=== PATIENT | female | born 1965 | race Caucasian/White ===

== ENCOUNTER → 2017-02-05 | Outpatient (REF) | payer OTHER ==
[2017-02-05 16:00] LABS: ALBUMIN 3.7 GM/DL (3.2-5.2); ALBUMIN/GLOBULIN RATIO 1.03 (1.00-1.93); ALKALINE PHOSPHATASE 77 U/L (45-117); ALT/SGPT 20 U/L (12-78); ANION GAP 7 MEQ/L (8-16); AST/SGOT 4 U/L (15-37); BILIRUBIN,TOTAL 0.4 MG/DL (0.2-1.0); BLOOD UREA NITROGEN 21 MG/DL (7-18); CALCIUM LEVEL 8.6 MG/DL (8.5-10.1); CARBON DIOXIDE LEVEL 26 MEQ/L (21-32); CHLORIDE LEVEL 107 MEQ/L (98-107); CHOLESTEROL LEVEL 243 MG/DL (<200); CREATININE FOR GFR 0.84 MG/DL (0.55-1.02); GLOMERULAR FILTRATION RATE > 60.0 (>51); GLUCOSE, FASTING 185 MG/DL (70-105); POTASSIUM SERUM 4.2 MEQ/L (3.5-5.1); SODIUM LEVEL 140 MEQ/L (136-145); TOTAL PROTEIN 7.3 GM/DL (6.4-8.2); TRIGLYCERIDES LEVEL 177 MG/DL (<150)
== END ==
LOC: M SFHCLACO 09:52
PROVIDERS: ATTEND Physician Assistant
DX: I10 Essential (primary) hypertension (principal); E11.9 Type 2 diabetes mellitus without complications; E78.2 Mixed hyperlipidemia

== ENCOUNTER → 2017-07-05 | Outpatient (CLI) | payer OTHER ==
[~2017-07-05] MED LIST: ASPI325T PO; ASPI81TA85 PO; ATOR1TAB21 PO; FISH100049 PO; GLIM2TAB PO; JARD1TAB3 PO; LISI40TAB PO; OMEG100011 PO; SIMV10TA2 PO; SIMV40TA2 PO; SUPECAP PO
--- NOTE | 2017-07-05 12:58 | REPMRS ---
Patient History The patient states she had a clinical breast exam in June 2017. Patient had first child at age 33. Family history of colorectal cancer in mother at age 50 or over and breast cancer in maternal grandmother at age 50 or over. Benign excisional biopsy of the right breast. Took hormonal contraceptives for 6 months. Digital Mammo Screening Bilat: July 05, 2017 - Exam #: [id number] Bilateral CC and MLO view(s) were taken. Technologist: Dinorah Cardoso Technologist Prior study comparison: June 29, 2016, bilateral digital mammo screening bilat performed at [facility]. June 24, 2015, bilateral digital mammo screening bilat performed at [facility]. FINDINGS: There are scattered fibroglandular densities. There has been no change in the appearance of the mammogram from the prior studies. There is a mild amount of residual fibroglandular tissue which is fairly symmetric. There is no interval development of dominant mass, architectural distortion, or clustered microcalcification suggestive of malignancy. ASSESSMENT: BI-RADS/ACR category 1 mammogram. Negative. Recommendation Routine screening mammogram in 1 year (for women over age 40). This mammogram was interpreted with the aid of an FDA-approved computer-aided dectection system. Electronically Signed By: Fadi Mathis MD 07/05/17 [id number]
== END ==
LOC: M RAD 10:48
PROVIDERS: ATTEND Obstetrics & Gynecology
DX: Z12.31 Encounter for screening mammogram for malignant neoplasm of breast (principal)

== ENCOUNTER 2017-07-14 19:21 | Observation (INO) | payer OTHER ==
[~2017-07-14] VITALS: Ht 172.7 cm; Wt 100.0 kg
[2017-07-14] MEDS ORDERED: ASPI81TA85 PO (19:38)
[2017-07-14] MEDS ORDERED: JARD1TAB3 PO (19:38)
[2017-07-14] MEDS ORDERED: SUPECAP PO (19:38)
[2017-07-14] MEDS ORDERED: SIMV40TA2 PO (19:38)
[2017-07-14] MEDS ORDERED: GLIM2TAB PO (19:38)
[2017-07-14] MEDS ORDERED: LISI40TAB PO (19:38)
--- NOTE | 2017-07-14 21:30 | REPUSA ---
CT of the head Clinical history: CVA. Technique: Multiple axial CT images were obtained through the head without administration of contrast . Findings: The ventricles and sulci are symmetric bilaterally. There is no evidence of acute hemorrhag e or infarct. There is no midline shift, mass effect, or extra-axial fluid collection. The osseous st ructures are unremarkable. The visualized paranasal sinuses and mastoid air cells are clear. Impression: Negative study.
[2017-07-14 22:02] LABS: BASO % 0.3 % (0.0-1.0); EOS # 0.1 10^3/uL (0.0-0.50); EOS % 0.9 % (0.0-3.0); IMMATURE GRANULOCYTE % 0.3 % (0-0); LYMPH # 2.9 10^3/uL (1.5-4.5); LYMPH % 33.6 % (24.0-44.0); MEAN CORPUSCULAR HEMOGLOBIN 28.6 pg (27.0-33.0); MEAN CORPUSCULAR HGB CONC 33.2 g/dl (32.0-36.5); MEAN CORPUSCULAR VOLUME 86.2 fl (80.0-96.0); MONO # 0.4 10^3/uL (0.0-0.8); MONO % 4.2 % (0.0-5.0); NEUTROPHILS # 5.3 10^3/uL (1.8-7.7); NEUTROPHILS % 60.7 % (36.0-66.0); PLATELET COUNT, AUTOMATED 300 10^3/uL (150-450); RED CELL DISTRIBUTION WIDTH 13.2 % (11.5-14.5); WHITE BLOOD COUNT 8.8 10^3/uL (4.0-10.0)
[2017-07-14] MEDS ORDERED: ASPIRIN 325 MG TAB PO ONE (22:15)
[2017-07-14 22:17] LABS: ADD MANUAL DIFFER NO; DIFF SLIDE NUMBER 180
[2017-07-14 22:20] LABS: INR 0.93
[2017-07-14 22:35] LABS: ALBUMIN 3.7 GM/DL (3.2-5.2); ALBUMIN/GLOBULIN RATIO 1.09 (1.00-1.93); ALKALINE PHOSPHATASE 83 U/L (45-117); ALT/SGPT 24 U/L (12-78); ANION GAP 7 MEQ/L (8-16); AST/SGOT 9 U/L (15-37); BILIRUBIN,DIRECT < 0.1 MG/DL (0.0-0.2); BILIRUBIN,TOTAL 0.4 MG/DL (0.2-1.0); BLOOD UREA NITROGEN 21 MG/DL (7-18); CARBON DIOXIDE LEVEL 28 MEQ/L (21-32); CHLORIDE LEVEL 102 MEQ/L (98-107); CREATININE FOR GFR 0.94 MG/DL (0.55-1.02); GLOMERULAR FILTRATION RATE > 60.0 (>51); GLUCOSE, FASTING 242 MG/DL (70-105); POTASSIUM SERUM 4.1 MEQ/L (3.5-5.1); SODIUM LEVEL 137 MEQ/L (136-145); TOTAL PROTEIN 7.1 GM/DL (6.4-8.2)
[2017-07-14 22:39] LABS: THYROXINE (T4) 9.4 UG/DL (4.5-12.0)
[2017-07-14 23:03] LABS: ERYTHROCYTE SEDIMENTATION RATE 20 mm/hr (0-30)
[2017-07-14] MEDS ORDERED: FISH100049 PO (23:14)
[2017-07-14] MEDS ORDERED: OMEG100011 PO (23:14)
[2017-07-14] MEDS ORDERED: SIMV10TA2 PO (23:14)
--- NOTE | 2017-07-15 01:40 | REP ---
Clinical: Altered mental status. Possible cerebrovascular accident. Comparison: 10/30/2011 . Findings: The mediastinum and cardiac silhouette are stable and within normal limits for portable technique. The lung paul are clear without acute consolidation, effusion, or pneumothorax. Skeletal structures are intact. Impression: No acute cardiopulmonary process appreciated. Signed by Scott Rubin MD 07/15/2017 01:32 A
[2017-07-15] MEDS ORDERED: GLUCAGON FOR INJ 1 MG VIAL (J1610) SC PRN (05:30)
[2017-07-15] MEDS ORDERED: DEXTROSE 50% 50 ML SYRINGE IV PRN (05:30)
[2017-07-15] MEDS ORDERED: GLUCOSE 4 GM CHEW TABLET PO PRN (05:30)
--- NOTE | 2017-07-15 05:30 | HPEPDOC ---
General Date of Admission Jul 14, 2017 at 19:22 Primary Care Physician: Monie Woods PA-C, LAC Attending Physician: HIEN MADDEN MD Chief Complaint The patient is a 52-year-old female admitted with a reason for visit of TIA. Source: Patient Exam Limitations: No limitations Timing/Duration: 24 hours Severity: Moderate Associated Symptoms: Other (numbness of face and right hand) History of Present Illness 52-year-old female, history of diabetes mellitus, hypertension, presented with right hand numbness. Her right hand numbness started all of a sudden spread to Right side of the face, which lasted for about 5-6 minutes. She had right side of numbness on the hand multiple times in the past but never had facial numbness and had never lasted for more than a minute. Denies any urinary or stool incontinence, speech difficulty, swallowing problem, any motor deficit. Denies any trauma, headache, blurred vision. Home Medications Scheduled Aspirin (Aspir-81) 81 Mg Tab, 81 MG PO DAILY, (Reported) Empagliflozin (Jardiance) 25 Mg Tab, 25 MG PO DAILY, (Reported) Fish Oil (Fish Oil 1000 mg) 1 Cap Cap, 1 CAP PO DAILY, (Reported) Glimepiride (Glimepiride) 2 Mg Tab, 2 MG PO BID, (Reported) Lisinopril (Lisinopril) 40 Mg Tab, 40 MG PO DAILY, (Reported) Simvastatin (Simvastatin) 10 Mg Tab, 10 MG PO DAILY, (Reported) Allergies Coded Allergies: No Known Allergies (Verified , 04/12/03) Past Medical History Medical History Diabetes mellitus, hypertension Surgical History x 2 Family History Significant Family History: Heart disease Social History * Smoker: Denies Alcohol: Denies Drugs: denies Recent Travel/Sick Contacts: Denies: Recent travel, Recent sick contacts Psychosocial History: No pertinent psych hx Review of Symptoms Constitutional: Denies: Chills, Fever, Night Sweats Eyes: Denies: Pain, Vision change ENT: Denies: Head Aches, Ear Pain, Dysphagia Skin: Denies: Rash, Lesions, Breakdown Pulmonary: Denies: Dyspnea, Cough Cardiovascular: Denies: Chest Pain, Palpitations, Orthopnea, Paroxysmal Noc. Dyspnea, Lt Headedness Gastrointestinal: Denies: Nausea, Vomiting, Abdominal Pain, Diarrhea Genitourinary: Denies: Dysuria, Frequency, Incontinence, Retention Hematologic: Denies: Bruising, Bleeding Excessively Musculoskeletal: Denies: Neck Pain, Back Pain, Joint Pain, Muscle Pain, Spasms Neurological: Reports: Numbness (face and right hand which is resolved now), Denies: Weakness, Change in speech, Confusion Psych: Reports: Mood Normal, Denies: Depression, Memory Issues Physical Examination General Exam: Positive: Alert, No Acute Distress Eye Exam: Positive: PERRLA, Conjunctiva & lids normal, EOMI, Negative: Sclera icteric ENT Exam: Positive: Atraumatic, Mucous membr. moist/pink, Pharynx Normal Neck Exam: Positive: Supple, Negative: JVD, thyromegaly Chest Exam: Positive: Clear to auscultation, Normal air movement Heart Exam: Positive: Rate Normal, Regular Rhythm, Normal S1, Normal S2, Negative: Murmurs, Rubs Telemetry: Positive: No significant arrhythmia Abdomen Exam: Positive: Normal bowel sounds, Soft, Negative: Tenderness, Hepatospenomegaly Extremity Exam: Positive: Normal pulses, Negative: Clubbing, Cyanosis, Edema Skin Exam: Positive: Nl turgor and temperature, Negative: Breakdown, Lesion Neuro Exam: Positive: Normal Speech, Cranial Nerves 3-12 NL, Reflexes 2+ Psych Exam: Positive: Mental status NL, Mood NL, Oriented x 3 Vital Signs Vital Signs Date Time Temp Pulse Resp B/P (MAP) Pulse Ox O2 Delivery O2 Flow Rate FiO2 07/15/17 04:56 62 94 07/15/17 04:37 140/70 (93) 07/14/17 19:30 97.5 16 Room Air Laboratory Data Labs 24H Laboratory Tests 2 07/14/17 21:12: Immature Granulocyte % (Auto) 0.3H, White Blood Count 8.8, Red Blood Count 4.58 , Hemoglobin 13.1, Hematocrit 39.5, Mean Corpuscular Volume 86.2, Mean Corpuscular Hemoglobin 28.6, Mean Corpuscular Hemoglobin Concent 33.2, Red Cell Distribution Width 13.2, Platelet Count 300, Neutrophils (%) (Auto) 60.7, Lymphocytes (%) (Auto) 33.6, Monocytes (%) (Auto) 4.2, Eosinophils (%) (Auto) 0.9, Basophils (%) (Auto) 0.3, Neutrophils # (Auto) 5.3, Lymphocytes # (Auto) 2.9, Monocytes # (Auto) 0.4, Eosinophils # (Auto) 0.1, Basophils # (Auto) 0.0, Immature Granulocyte # (Auto) 0.0, Nucleated Red Blood Cells % (auto) 0.0, Erythrocyte Sedimentation Rate 20, Prothrombin Time 12.5, Prothromb Time International Ratio 0.93, Activated Partial Thromboplast Time 24.8L, Anion Gap 7L, Glomerular Filtration Rate > 60.0, Estimated Mean Plasma Glucose 292H, Hemoglobin A1c 11.8H, Calcium Level 9.0, Aspartate Amino Transf (AST/SGOT) 9L, Alanine Aminotransferase (ALT/SGPT) 24, Alkaline Phosphatase 83, Total Bilirubin 0.4, Direct Bilirubin < 0.1, Total Creatine Kinase 116, Creatine Kinase MB 1.1, Creatine Kinase MB Relative Index 0.94, Troponin I < 0.02, C- Reactive Protein, Quantitative 1.10H, Total Protein 7.1, Albumin 3.7, Albumin/ Globulin Ratio 1.09, Thyroid Stimulating Hormone (TSH) 1.790, Free Thyroxine Index 2.9, Thyroxine (T4) 9.4, Triiodothyronine (T3) Uptake 31 07/15/17 03:25: Troponin I < 0.02 CBC/BMP Laboratory Tests 07/14/17 21:12 Red Blood Count 4.58, Mean Corpuscular Volume 86.2, Mean Corpuscular Hemoglobin 28.6, Mean Corpuscular Hemoglobin Concent 33.2, Red Cell Distribution Width 13.2 , Neutrophils (%) (Auto) 60.7, Lymphocytes (%) (Auto) 33.6, Monocytes (%) (Auto ) 4.2, Eosinophils (%) (Auto) 0.9, Basophils (%) (Auto) 0.3, Neutrophils # (Auto ) 5.3, Lymphocytes # (Auto) 2.9, Monocytes # (Auto) 0.4, Eosinophils # (Auto) 0.1, Basophils # (Auto) 0.0 Assessment/Plan 52-year-old female, history of for diabetes mellitus type 2, hypertension, presented with right hand numbness and right side of face numbness which is resolved now Plan / VTE VTE Prophylaxis Ordered?: Yes Plan Plan TIA. Start aspirin, Lipitor. CT head unremarkable. Check MRI brain, MRA head and neck, echocardiogram, troponin, quality assurance monitor final neuro checks. Diabetes mellitus. A1c 11.8, hold oral hypoglycemic as started Levemir and sliding scale insulin. 10. Hypertension. Continue with lisinopril. DVT prophylaxis heparin subcutaneous. 10. Cardiac diabetic diet Disposition Patient will be discharged home if MRI brain and MRA head and neck normal Diet: Continue Current Activity: Continue Current Diagnostics: Repeat Labs in AM Anticipated Discharge: Home TIFFANIE CASTELLANOS MD Jul 15, 2017 05:30
[2017-07-15] MEDS ORDERED: LORazepam 2 MG/ML VIAL (J2060) IV ONE (07:45)
[2017-07-15 08:01] LABS: MEAN CORPUSCULAR HGB CONC 32.5 g/dl (32.0-36.5); MEAN CORPUSCULAR VOLUME 86.1 fl (80.0-96.0); RED CELL DISTRIBUTION WIDTH 13.2 % (11.5-14.5); WHITE BLOOD COUNT 6.9 10^3/uL (4.0-10.0)
[2017-07-15] MEDS: HumaLOG INSULIN (NovoLOG) PER UNIT SC SCH ×3 (08:03→17:30)
[2017-07-15 08:33] LABS: ANION GAP 7 MEQ/L (8-16); BLOOD UREA NITROGEN 20 MG/DL (7-18); CALCIUM LEVEL 9.1 MG/DL (8.5-10.1); CARBON DIOXIDE LEVEL 26 MEQ/L (21-32); CHLORIDE LEVEL 106 MEQ/L (98-107); CREATININE FOR GFR 0.78 MG/DL (0.55-1.02); GLOMERULAR FILTRATION RATE > 60.0 (>51); GLUCOSE, FASTING 231 MG/DL (70-105); POTASSIUM SERUM 4.3 MEQ/L (3.5-5.1); SODIUM LEVEL 139 MEQ/L (136-145)
[2017-07-15] MEDS ORDERED: LEVEMIR (INSULIN DETEMIR) 1 UNITS/0.01ML SC SCH (09:00)
[2017-07-15] MEDS ORDERED: ASPIRIN 81 MG CHEW TABLET PO SCH (09:00)
[2017-07-15] MEDS ORDERED: ATORVASTATIN 20 MG TAB PO SCH ×2 (09:00→21:00)
[2017-07-15] MEDS ORDERED: LISINOPRIL 40 MG TAB PO SCH (09:00)
[2017-07-15] MEDS ORDERED: SIMVASTATIN 10 MG TAB PO SCH (09:00)
--- NOTE | 2017-07-15 09:12 | ECGEPIP ---
Stationary ECG Study [facility] - ED Test Date: 2017-07-14 Pat Name: GM LYNCH Department: Room: [place] [address] Gender: F Tavern Keeper: rn : 1965 Requested By: GELA RUTHERFORD Order Number: [id number] Reading MD: Nathanael Major Measurements Intervals [place] Rate: 62 P: 42 DC: 171 QRS: -1 QRSD: 89 T: 25 QT: 405 QTc: 412 Interpretive Statements SINUS RHYTHM NSTTW ABNORMALITIES SIMILAR TO 10/30/11 Electronically Signed On 07-15-2017 9:12:34 EDT by Nathanael Major
--- NOTE | 2017-07-15 10:46 | REP ---
MRA BRAIN WITHOUT CONTRAST: HISTORY: Infarction. 3D [id number] MR angiography was performed at the level of the [place]. There is no aneurysm, arteriovenous malformation or atherosclerotic lesion. The major intracranial vessels are patent. The vertebral arteries are equal in size. IMPRESSION: Normal MRA brain. Signed by Leonard Matos MD 07/15/2017 11:02 A
--- NOTE | 2017-07-15 10:52 | REP ---
MR BRAIN WITHOUT CONTRAST: HISTORY: Infarction. COMPARISON: CT 07/14/2017. A single punctate focus of increased signal intensity on T2-weighted images is present in the subcortical white matter of the right parietal lobe. There is no intraparenchymal hemorrhage, infarct, mass, or midline shift. The sella turcica is partially empty. The ventricular system is normal in appearance. There is no extracerebral collection. Mucosal thickening is present in the right sphenoid sinuses. IMPRESSION: There is a single punctate focus of increased signal intensity in the subcortical white matter of the right parietal lobe. This is a nonspecific finding. Signed by Leonard Matos MD 07/15/2017 11:02 A
--- NOTE | 2017-07-15 14:53 | IPNPDOC ---
Text Note Date of Service The patient was seen on 07/15/17. NOTE Subjective: Patient states her symptoms have resolved. States her right upper extremity numbness is actually lateral region of her right upper extremity from elbow to her wrist, which lasted from 4 PM to 7 PM yesterday. Also had some numbness at the V2 region of her right face which lasted 5 minutes yesterday. Denies any chest pain/shortness process for patient. No focal weakness. All her symptoms have resolved. Objective: Vitals: (see below) General: No acute distress, laying comfortably in bed. HEENT: Moist mucous membranes. Neck: No JVD or lymphadenopathy Cardiac: RRR, No murmurs Pulm: Clear to auscultation b/l. No wheezing, rhonchi Abd: NT/ND + BS Ext: No edema or cyanosis Neuro: Strength 5/5 BUE and BLE. CN 2-12 intact. F to N intact Negative pronator drift. Negative Bab[place]. Sensation to fine touch and pinprick intact bilateral upper and lower 70s. Labs (see below) Images: MRI Brain 07/15/17 IMPRESSION: There is a single punctate focus of increased signal intensity in the subcortical white matter of the right parietal lobe. This is a nonspecific finding. MRA Brain 07/15/17 - no acute findings. CT Head 07/14/17 negative for acute findings. Assessment/Plan 1. Right upper extremity numbness likely from peripheral nerve, unlikely CVA. Resolved. MRI (see above). Neurology was consulted overnight and will be seeing the patient today. Patient states she does not take aspirin daily. Right-sided face numbness and V2 region lasting 5 minutes very nonspecific. 2. Diabetes mellitus- continue home meds 3. Hypertension- controlled continue home meds 4. Hyperlipidemia- continue statin DVT prophy: Out of bed and ambulate VS,Fishbone, I+O VS, Fishbone, I+O Laboratory Tests 07/14/17 21:12 Red Blood Count 4.58, Mean Corpuscular Volume 86.2, Mean Corpuscular Hemoglobin 28.6, Mean Corpuscular Hemoglobin Concent 33.2, Red Cell Distribution Width 13.2 , Neutrophils (%) (Auto) 60.7, Lymphocytes (%) (Auto) 33.6, Monocytes (%) (Auto ) 4.2, Eosinophils (%) (Auto) 0.9, Basophils (%) (Auto) 0.3, Neutrophils # (Auto ) 5.3, Lymphocytes # (Auto) 2.9, Monocytes # (Auto) 0.4, Eosinophils # (Auto) 0.1, Basophils # (Auto) 0.0 07/15/17 07:43 Red Blood Count 4.75, Mean Corpuscular Volume 86.1, Mean Corpuscular Hemoglobin 28.0, Mean Corpuscular Hemoglobin Concent 32.5, Red Cell Distribution Width 13.2 , Calcium Level 9.1 Vital Signs Date Time Temp Pulse Resp B/P (MAP) Pulse Ox O2 Delivery O2 Flow Rate FiO2 07/15/17 14:17 119/78 (92) 07/15/17 14:11 74 95 07/15/17 07:32 97.7 18 Room Air HIEN MADDEN MD Jul 15, 2017 14:53
[2017-07-15 16:47] VITALS: BP 160/99
--- NOTE | 2017-07-15 18:37 | REP ---
Duplex carotid sonography: History: Question carotid stenosis. Findings: Antegrade flow is observed in both vertebral arteries. Right carotid: Right common carotid artery shows mild soft plaquing. There is mild soft plaquing in the right carotid bifurcation on two-dimensional scanning. Color flow and spectral Doppler interrogation are unremarkable on the right however. Velocity chart right carotid: Right CCA PSV 80 cm/S Right ICA PSV 85 EDV 17 Right ECA PSV 100 Right ICA/CCA ratio normal 1.07. Impression: 0 to 15% category narrowing in the right ICA by Doppler velocity criteria. Left carotid: The left common carotid artery shows mild soft plaquing. There is mild soft plaquing in the bulb and proximal ICA on two-dimensional scanning on the left side. Color flow and spectral Doppler interrogation are unremarkable on the left. Velocity chart left carotid: Left CCA PSV 107 cm/S Left ICA PSV 71 EDV 28 Left ECA PSV 85 Left ICA/CCA ratio normal 0.7. Impression: 0 to 15% category narrowing in the left ICA by Doppler velocity criteria. Signed by Jason Thruman MD 07/15/2017 07:50 P
[2017-07-15] MEDS ORDERED: ASPI325T PO (19:36)
[2017-07-15] MEDS ORDERED: ATOR1TAB21 PO (19:36)
--- NOTE | 2017-07-16 18:07 | CR ---
DATE OF CONSULTATION: 07/15/2017 REFERRING PROVIDER: Rene Pond MD REASON FOR CONSULTATION: Right arm paresthesias, right facial paresthesias, rule out transient ischemic attack (TIA). HISTORY OF PRESENTING ILLNESS: Mar Cordero is a 52-year-old female with poorly controlled diabetes with history of hypertension, presenting with a chief complaint of right hand paresthesias and arm paresthesias between her forearm and fingers, including digits 3 and 4. The patient states that she has had these symptoms in the past but did suddenly develop right facial paresthesias lasting 5-6 minutes, not associated with any headache, resolving on their own. The patient was admitted to [facility] and was ruled out for having a stroke. MRI of the brain and MR angiogram were recommended initially, but patient refused to have the studies completed, however, did get them completed, which were both negative for any acute stroke. MR angiogram of the head was completed, which was negative for any intracranial stenosis. A very faint nonspecific increased signal intensity in subcortical right-sided parietal lobe was noted of unclear etiology. The patient was using aspirin 81 mg daily at home and was already on Lipitor 40 mg daily. Her complete blood count (CBC), comprehensive metabolic panel (CMP), and erythrocyte sedimentation rate (ESR) were found to be within normal limits. Her BUN was minimally elevated. Her hemoglobin A1c was extremely high at 11.8. Hypercoagulable vasculitic workup is pending. The patient did have a carotid ultrasound; the results are pending at this time. The patient has been in the hospital greater than 24 hours without recurring symptoms. She has been threatening to leave the hospital against medical advice. She has been more calm and is agreeable to followup the carotid ultrasound results with her primary care provider, Monie Woods, as well as have an outpatient echocardiogram set up for her. The patient states that she usually sleeps on the bed with her right arm hanging over the edge of the bed. The patient demonstrates significant weakness in the distribution of the radial nerve with lesion suspected to be above the spinal groove. The patient demonstrates weakness in her triceps as well as wrist extensor and finger extensors. All of the muscles tested in the distribution of ulnar and median nerves as well as the axillary nerves appear to be within normal limits. REVIEW OF SYSTEMS: 14-point review of systems obtained and is negative except for as per history of presenting illness (HPI). ALLERGIES: None. HOME MEDICATIONS: - aspirin 81 mg by mouth daily - Jardiance 25 mg by mouth daily - fish oil 1000 mg by mouth daily - glimepiride 2 mg by mouth twice a day - lisinopril 40 mg by mouth daily - simvastatin 10 mg by mouth daily PAST MEDICAL HISTORY: Diabetes, type 2, poorly controlled. Hypertension. PAST SURGICAL HISTORY: (C) section times two. FAMILY HISTORY: Noncontributory. SOCIAL HISTORY: The patient denies use of any alcohol, tobacco, or illicit drugs. PHYSICAL EXAMINATION: Blood pressure is 124/77, pulse of 66, respiratory rate is 18, temperature is 97.2 degrees Fahrenheit, oxygenation 95% on room air. Current height is 5 feet 8 inches. Current weight is 100 kg. Patient is awake, alert, oriented to person, place, and time. Speech, language, comprehension, and repetition are intact. Pupils are 3 mm, round, reactive to light in the right eye. 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 Patient has limited extraocular movements, particularly with left eye abduction. Sensation in V1, V2, V3 is intact to light touch. No facial asymmetry to activation. Palate elevates symmetrically. Tongue is midline. No weakness of sternocleidomastoids bilaterally. There is no pronator drift. The patient demonstrates 5/5 strength involving the bilateral deltoids, biceps, finger flexors, bilateral iliopsoas, quadriceps, anterior tibialis. The patient demonstrates significant 4/5 weakness of the right triceps and 5- weakness of the right wrist extensor and finger extensors. Sensory is slightly reduced over the dorsum of the right hand and forearm in the distribution of the radial sensory nerve. Deep tendon reflexes are 2+ throughout with reduced lower extremity reflexes. Romberg testing is deferred. Gait appears to be normal. ASSESSMENT: 1. 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 2. Facial paresthesias. Cannot entirely exclude transient ischemic attack given significant risk factors of poorly controlled diabetes and risk factors of hypertension, hyperlipidemia. PLAN: 1. The patient will followup with her primary care provider, Monie Woods, with results of her carotid ultrasound. Recommend increasing aspirin to 325 mg daily. 2. Recommend outpatient echocardiogram. 3. Recommend outpatient electromyography (EMG) nerve conduction study of the upper extremities and formal neurological followup. History was obtained from both the patient and the patient's father.
[2017-07-20 00:07] LABS: SJOGREN'S ANTI SS-A <0.2 AI (0.0-0.9); SJOGREN'S ANTI SS-B <0.2 AI (0.0-0.9)
[2017-07-24 00:06] LABS: PROTEIN C ANTIGEN 111 % (60-150); PROTEIN S ANTIGEN FREE 117 % (57-157); PROTEIN S ANTIGEN TOTAL 94 % (60-150)
== END 2017-07-15 20:32 | disposition home or self-care (01) ==
LOC: M ED 19:21 → M ED INP 19:22
PROVIDERS: ADMIT Internal Medicine; ATTEND Internal Medicine
DX: R20.2 Paresthesia of skin (principal); E11.9 Type 2 diabetes mellitus without complications; I10 Essential (primary) hypertension; E78.4 Other hyperlipidemia; Z79.82 Long term (current) use of aspirin; Z79.899 Other long term (current) drug therapy
CPT/HCPCS: 36415; 70450; 70544; 70551; 71010; 80048; 80076; 81240; 81241; 82550; 82553; 83036; 83090; 84436; 84443; 84479; 85025; 85027; 85300; 85301; 85302; 85305; 85306; 85610; 85652; 85730; 86038; 86140; 86147; 86235; 86256; 86850; 86900; 86901; 93005; 93041; 93880; 94760; 96374; 99285; J2060

== ENCOUNTER → 2018-01-30 | Outpatient (REF) | payer OTHER ==
[2018-01-30 15:09] LABS: ALBUMIN 3.6 GM/DL (3.2-5.2); ALBUMIN/GLOBULIN RATIO 1.13 (1.00-1.93); ALKALINE PHOSPHATASE 73 U/L (45-117); ALT/SGPT 25 U/L (12-78); ANION GAP 7 MEQ/L (8-16); AST/SGOT 9 U/L (7-37); BILIRUBIN,TOTAL 0.5 MG/DL (0.2-1.0); BLOOD UREA NITROGEN 14 MG/DL (7-18); CALCIUM LEVEL 8.6 MG/DL (8.5-10.1); CARBON DIOXIDE LEVEL 25 MEQ/L (21-32); CHLORIDE LEVEL 110 MEQ/L (98-107); CHOLESTEROL LEVEL 133 MG/DL (<200); CHOLESTEROL RISK RATIO 2.955 (<5); CREATININE FOR GFR 0.82 MG/DL (0.55-1.30); GLOMERULAR FILTRATION RATE > 60.0 (>51); GLUCOSE, FASTING 172 MG/DL (70-100); HDL CHOLESTEROL 45 MG/DL (>40); LDL CHOLESTEROL 67.6 MG/DL (<100); NON-HDL-C 88 MG/DL; POTASSIUM SERUM 4.5 MEQ/L (3.5-5.1); SODIUM LEVEL 142 MEQ/L (136-145); TOTAL PROTEIN 6.8 GM/DL (6.4-8.2); TRIGLYCERIDES LEVEL 102 MG/DL (<150)
[2018-01-30 15:19] LABS: ESTIMATED AVERAGE GLUCOSE 255 MG/DL (60-110); HEMOGLOBIN A1c 10.5 %
== END ==
LOC: M SFHCLACO 08:58
DX: I10 Essential (primary) hypertension (principal); E78.2 Mixed hyperlipidemia; E11.9 Type 2 diabetes mellitus without complications

== ENCOUNTER → 2018-07-11 | Outpatient (CLI) | payer OTHER | LOC: M RAD 10:42 | DX: Z12.31 Encounter for screening mammogram for malignant neoplasm of breast (principal); Z53.8 Procedure and treatment not carried out for other reasons ==

== ENCOUNTER → 2019-01-19 | Outpatient (REF) | payer OTHER ==
[~2019-01-19] MED LIST changes: +ASPI-1 PO; -ASPI325T PO; +LISI40TA PO; -LISI40TAB PO
[2019-01-19 13:17] LABS: ALBUMIN 3.8 GM/DL (3.2-5.2); ALT/SGPT 23 U/L (12-78); BILIRUBIN,TOTAL 0.6 MG/DL (0.2-1.0); BLOOD UREA NITROGEN 25 MG/DL (7-18); CARBON DIOXIDE LEVEL 25 MEQ/L (21-32); CHLORIDE LEVEL 108 MEQ/L (98-107); CHOLESTEROL LEVEL 153 MG/DL (<200); CHOLESTEROL RISK RATIO 3.477 (<5); CREATININE FOR GFR 0.89 MG/DL (0.55-1.30); GLOMERULAR FILTRATION RATE > 60.0 (>51); GLUCOSE, FASTING 259 MG/DL (70-100); HDL CHOLESTEROL 44 MG/DL (>40); LDL CHOLESTEROL 72 MG/DL (<100); NON-HDL-C 109 MG/DL; POTASSIUM SERUM 4.7 MEQ/L (3.5-5.1); SODIUM LEVEL 140 MEQ/L (136-145); TOTAL PROTEIN 6.8 GM/DL (6.4-8.2); TRIGLYCERIDES LEVEL 183 MG/DL (<150)
[2019-01-19 13:22] LABS: HEMOGLOBIN A1c 11.8 %
== END ==
LOC: M SFHCADAM 09:29
PROVIDERS: ATTEND Physician Assistant
DX: E78.2 Mixed hyperlipidemia (principal); E11.9 Type 2 diabetes mellitus without complications; I10 Essential (primary) hypertension

== ENCOUNTER → 2019-05-14 | Outpatient (REF) | payer OTHER ==
[2019-05-14 12:26] LABS: HEMOGLOBIN A1c 10.7 %
[2019-05-14 12:33] LABS: ALBUMIN 3.7 GM/DL (3.2-5.2); ALT/SGPT 27 U/L (12-78); BILIRUBIN,TOTAL 0.3 MG/DL (0.2-1.0); BLOOD UREA NITROGEN 24 MG/DL (7-18); CALCIUM LEVEL 8.9 MG/DL (8.5-10.1); CARBON DIOXIDE LEVEL 25 MEQ/L (21-32); CHLORIDE LEVEL 109 MEQ/L (98-107); CHOLESTEROL LEVEL 149 MG/DL (<200); CHOLESTEROL RISK RATIO 3.547 (<5); CREATININE FOR GFR 0.86 MG/DL (0.55-1.30); GLOMERULAR FILTRATION RATE > 60.0 (>51); GLUCOSE, FASTING 221 MG/DL (70-100); HDL CHOLESTEROL 42 MG/DL (>40); LDL CHOLESTEROL 71 MG/DL (<100); NON-HDL-C 107 MG/DL; POTASSIUM SERUM 4.8 MEQ/L (3.5-5.1); SODIUM LEVEL 140 MEQ/L (136-145); TOTAL PROTEIN 6.9 GM/DL (6.4-8.2); TRIGLYCERIDES LEVEL 181 MG/DL (<150)
== END ==
LOC: M SFHCADAM 08:40
PROVIDERS: ATTEND Physician Assistant
DX: I10 Essential (primary) hypertension (principal); E78.2 Mixed hyperlipidemia

== ENCOUNTER → 2021-01-27 | Outpatient (CLI) | payer SELFPAY ==
[~2021-01-27] MED LIST changes: -ASPI81TA85 PO; +ASPI81TA86 PO; -GLIM2TAB PO; +GLIM2TAB4 PO; -LISI40TA PO; +LISI40TA4 PO; -SIMV10TA2 PO; +SIMV10TA21 PO; -SIMV40TA2 PO; +SIMV40TA20 PO
== END ==
LOC: M LABSMTC 13:53
PROVIDERS: ATTEND Pediatrics
DX: Z20.822 Contact with and (suspected) exposure to COVID-19 (principal)

== ENCOUNTER → 2021-05-16 | Outpatient (REF) | payer OTHER ==
[2021-05-16 13:20] LABS: HEMOGLOBIN A1c 10.5 %
[2021-05-16 13:28] LABS: ALBUMIN 3.6 GM/DL (3.2-5.2); ALT/SGPT 25 U/L (12-78); BILIRUBIN,TOTAL 0.3 MG/DL (0.2-1.0); BLOOD UREA NITROGEN 25 MG/DL (7-18); CARBON DIOXIDE LEVEL 23 MEQ/L (21-32); CHLORIDE LEVEL 107 MEQ/L (98-107); CHOLESTEROL LEVEL 153 MG/DL (<200); CHOLESTEROL RISK RATIO 3.558 (<5); GLOMERULAR FILTRATION RATE > 60.0 (>51); GLUCOSE, FASTING 297 MG/DL (70-100); HDL CHOLESTEROL 43 MG/DL (>40); LDL CHOLESTEROL 72 MG/DL (<100); NON-HDL-C 110 MG/DL; POTASSIUM SERUM 4.9 MEQ/L (3.5-5.1); SODIUM LEVEL 138 MEQ/L (136-145); TOTAL PROTEIN 6.4 GM/DL (6.4-8.2); TRIGLYCERIDES LEVEL 189 MG/DL (<150)
== END ==
LOC: M SFHCADAM 09:13
PROVIDERS: ATTEND Physician Assistant
DX: E78.2 Mixed hyperlipidemia (principal); I10 Essential (primary) hypertension; E11.65 Type 2 diabetes mellitus with hyperglycemia

== ENCOUNTER → 2021-12-12 | Outpatient (REF) | payer OTHER ==
[2021-12-12 13:52] LABS: ALBUMIN 3.7 GM/DL (3.2-5.2); ALT/SGPT 22 U/L (12-78); BILIRUBIN,TOTAL 0.5 MG/DL (0.2-1.0); BLOOD UREA NITROGEN 26 MG/DL (7-18); CARBON DIOXIDE LEVEL 26 MEQ/L (21-32); CHLORIDE LEVEL 106 MEQ/L (98-107); CHOLESTEROL LEVEL 163 MG/DL (<200); CREATININE FOR GFR 0.96 MG/DL (0.55-1.30); GLOMERULAR FILTRATION RATE > 60.0 (>51); GLUCOSE, FASTING 252 MG/DL (70-100); HDL CHOLESTEROL 43 MG/DL (>40); LDL CHOLESTEROL 88 MG/DL (<100); NON-HDL-C 120 MG/DL; POTASSIUM SERUM 4.4 MEQ/L (3.5-5.1); SODIUM LEVEL 138 MEQ/L (136-145); TOTAL PROTEIN 6.8 GM/DL (6.4-8.2); TRIGLYCERIDES LEVEL 161 MG/DL (<150)
[2021-12-12 14:16] LABS: HEMOGLOBIN A1c 11.3 %
== END ==
LOC: M SFHCADAM 08:28
PROVIDERS: ATTEND Physician Assistant
DX: I10 Essential (primary) hypertension (principal); E78.2 Mixed hyperlipidemia; E11.65 Type 2 diabetes mellitus with hyperglycemia

== ENCOUNTER → 2022-02-26 | Outpatient (CLI) | payer OTHER | LOC: M WHC 11:07 | PROVIDERS: ATTEND Obstetrics & Gynecology | DX: Z53.9 Procedure and treatment not carried out, unspecified reason (principal) ==

== ENCOUNTER → 2022-08-07 | Outpatient (REF) | payer OTHER | LOC: M LAB REF 16:41 | PROVIDERS: ATTEND Surgery | DX: L72.0 Epidermal cyst (principal) ==

== ENCOUNTER → 2023-04-04 | Outpatient (REF) | payer OTHER ==
[2023-04-04 18:10] LABS: BASO % 0.4 % (0.0-1.0); EOS # 0.2 10^3/uL (0.0-0.5); EOS % 2.4 % (0.0-3.0); HEMATOCRIT 40.1 % (36.0-47.0); HEMOGLOBIN 12.7 g/dl (12.0-15.5); LYMPH # 3.1 10^3/uL (1.5-5.0); LYMPH % 38.4 % (24.0-44.0); MEAN CORPUSCULAR HEMOGLOBIN 27.4 pg (27.0-33.0); MEAN CORPUSCULAR HGB CONC 31.7 g/dl (32.0-36.5); MEAN CORPUSCULAR VOLUME 86.6 fl (80.0-96.0); MONO # 0.3 10^3/uL (0.0-0.8); MONO % 3.5 % (2.0-8.0); NEUTROPHILS # 4.4 10^3/uL (1.5-8.5); NEUTROPHILS % 55.2 % (36.0-66.0); PLATELET COUNT, AUTOMATED 347 10^3/uL (150-450); RED BLOOD COUNT 4.63 10^6/uL (4.00-5.40)
[2023-04-04 18:14] LABS: ALKALINE PHOSPHATASE 74 U/L (46-116); ALT/SGPT 16 U/L (7.0-40); AST/SGOT 11 U/L (<34); BILIRUBIN,TOTAL 0.5 MG/DL (0.3-1.2); BLOOD UREA NITROGEN 21 MG/DL (9-23); CALCIUM LEVEL 9.2 MG/DL (8.5-10.1); CARBON DIOXIDE LEVEL 26 MMOL/L (20-31); CHLORIDE LEVEL 106 MMOL/L (98-107); CHOLESTEROL LEVEL 153 MG/DL (<200); CHOLESTEROL RISK RATIO 3.46 (<5); CREATININE FOR GFR 0.68 MG/DL (0.55-1.30); GLOMERULAR FILTRATION RATE > 60.0 (>51); GLUCOSE, FASTING 148 MG/DL (60-100); HDL CHOLESTEROL 44.2 MG/DL (>40); LDL CHOLESTEROL 72.8 MG/DL (<100); NON-HDL-C 108.8 MG/DL; POTASSIUM SERUM 4.1 MMOL/L (3.5-5.1); SODIUM LEVEL 140 MMOL/L (136-145); TOTAL PROTEIN 6.8 G/DL (5.7-8.2); TRIGLYCERIDES LEVEL 180 MG/DL (<150)
[2023-04-04 18:15] LABS: FREE T4 1.07 NG/DL (0.89-1.76); THYROID STIMULATING HORMONE 1.246 uIU/ML (0.55-4.78); VITAMIN B12 LEVEL 318 PG/ML (211-911)
[2023-04-04 18:28] LABS: CREATININE, URINE 54.2 MG/DL; MAU/CREAT RATIO 12.9 MCG/MG (0.0-30.0)
== END ==
LOC: M SFHCPLAZ 14:10
PROVIDERS: ATTEND Physician Assistant
DX: E78.2 Mixed hyperlipidemia (principal); I10 Essential (primary) hypertension; E11.65 Type 2 diabetes mellitus with hyperglycemia

== ENCOUNTER → 2023-06-05 | Outpatient (CLI) | payer OTHER | LOC: M WHC 11:33 | PROVIDERS: ATTEND Physician Assistant | DX: Z12.31 Encounter for screening mammogram for malignant neoplasm of breast (principal) ==

== ENCOUNTER → 2024-07-02 | Outpatient (CLI) | payer OTHER ==
[2024-07-02 13:34] LABS: BASO # 0.1 10^3/uL (0.0-0.2); BASO % 0.6 % (0.0-1.0); EOS # 0.2 10^3/uL (0.0-0.5); EOS % 2.8 % (0.0-3.0); HEMATOCRIT 44.1 % (36.0-47.0); LYMPH # 2.6 10^3/uL (1.5-5.0); LYMPH % 33.5 % (24.0-44.0); MEAN CORPUSCULAR HEMOGLOBIN 27.9 pg (27.0-33.0); MEAN CORPUSCULAR HGB CONC 31.7 g/dl (32.0-36.5); MONO # 0.3 10^3/uL (0.0-0.8); MONO % 3.7 % (2.0-8.0); NEUTROPHILS # 4.6 10^3/uL (1.5-8.5); PLATELET COUNT, AUTOMATED 326 10^3/uL (150-450); RED BLOOD COUNT 5.01 10^6/uL (4.00-5.40); WHITE BLOOD COUNT 7.8 10^3/uL (4.0-10.0)
[2024-07-02 13:36] LABS: ALKALINE PHOSPHATASE 85 U/L (46-116); ALT/SGPT 18 U/L (7.0-40); AST/SGOT < 8 U/L (<34); BILIRUBIN,TOTAL 0.6 MG/DL (0.3-1.2); BLOOD UREA NITROGEN 20 MG/DL (9-23); CALCIUM LEVEL 9.8 MG/DL (8.3-10.6); CARBON DIOXIDE LEVEL 25 MMOL/L (20-31); CHLORIDE LEVEL 107 MMOL/L (98-107); CHOLESTEROL LEVEL 176 MG/DL (<200); CREATININE FOR GFR 0.74 MG/DL (0.55-1.30); GLOMERULAR FILTRATION RATE > 60.0 (>45); GLUCOSE, FASTING 147 MG/DL (74-106); HDL CHOLESTEROL 43.9 MG/DL (>40); LDL CHOLESTEROL 89.3 MG/DL (<100); NON-HDL-C 132.1 MG/DL; POTASSIUM SERUM 4.1 MMOL/L (3.5-5.1); SODIUM LEVEL 139 MMOL/L (136-145); TOTAL PROTEIN 7.1 G/DL (5.7-8.2); TRIGLYCERIDES LEVEL 214 MG/DL (<150)
[2024-07-02 13:37] LABS: THYROID STIMULATING HORMONE 1.008 uIU/ML (0.55-4.78)
[2024-07-02 13:40] LABS: FREE T4 1.24 NG/DL (0.89-1.76)
[2024-07-02 13:58] LABS: CREATININE, URINE 41.8 MG/DL; MALB URINE SIEMENS < 3.0 MG/L; MAU/CREAT RATIO 7.1 MCG/MG (0.0-30.0)
[2024-07-02 14:12] LABS: HEMOGLOBIN A1c 10.8 % (4.0-6.0)
== END ==
LOC: M PLALAB 10:59
PROVIDERS: ATTEND Physician Assistant
DX: I10 Essential (primary) hypertension (principal); E78.2 Mixed hyperlipidemia; E11.65 Type 2 diabetes mellitus with hyperglycemia

== ENCOUNTER → 2025-05-04 | Outpatient (REF) | payer OTHER ==
[~2025-05-04] MED LIST changes: +LISI40TA10 PO; -LISI40TA4 PO
[2025-05-06 15:02] LABS: HPV APTIMA Not Detected (Not Detected)
== END ==
LOC: M SFHCWAGY 18:07
PROVIDERS: ATTEND Nurse Practitioner Family
DX: Z12.4 Encounter for screening for malignant neoplasm of cervix (principal); Z11.51 Encounter for screening for human papillomavirus (HPV)

== ENCOUNTER → 2025-05-04 | Outpatient (CLI) | payer OTHER | LOC: M WHC 13:34 | PROVIDERS: ATTEND Nurse Practitioner Family | DX: Z12.31 Encounter for screening mammogram for malignant neoplasm of breast (principal); R92.313 Mammographic fatty tissue density, bilateral breasts ==

== ENCOUNTER → 2025-07-26 | Outpatient (CLI) | payer OTHER ==
[2025-07-26 17:25] LABS: ESTIMATED AVERAGE GLUCOSE 183.0 MG/DL (60-110)
== END ==
LOC: M PLALAB 15:59
PROVIDERS: ATTEND Nurse Practitioner Family
DX: E11.65 Type 2 diabetes mellitus with hyperglycemia (principal)